=== PATIENT | male | born 1985 | race Caucasian/White ===

== ENCOUNTER 2017-06-08 00:01 | Outpatient (POV) ==
[2016-02-10 12:45] VITALS: BMI 38.2
== END 2017-06-14 00:02 | disposition home or self-care (01) ==
LOC: OUTPT 00:01
PROVIDERS: ATTEND Otolaryngology
DX: H91.90 Unspecified hearing loss, unspecified ear (principal)
CPT/HCPCS: 92557; 92567

== ENCOUNTER → 2017-06-21 | Outpatient (POV) ==
[2016-02-10 12:45] VITALS: BMI 38.2
== END ==
LOC: OUTPT 00:01
PROVIDERS: ATTEND Otolaryngology
DX: H90.3 Sensorineural hearing loss, bilateral (principal)
CPT/HCPCS: 92557

== ENCOUNTER 2017-08-23 11:26 | Emergency (ER) ==
[2017-08-23 11:35] VITALS: BP 144/78; TEMP 100.8; BMI 39.3
[2017-08-23] MEDS ORDERED: LIDOCAINE HCL 1% SDV SUBCUT STA (11:35)
[2017-08-23] MEDS ORDERED: ROCEPHIN IM STA (11:35)
--- NOTE | 2017-08-23 11:37 | ED.PDOC ---
General ED Provider: Dr. JEYSON DOUGLASS Chief Complaint: Sore Throat Stated Complaint: sore throat Time Seen by Physician: 11:30 Mode of Arrival: Walk-In Information Source: Patient Exam Limitations: No limitations Primary Care Provider: TAWANA WESTFALL Nursing and Triage Documentation Reviewed and Agree: Yes EENT Complaint Exam - Throat Complaint/Exam Symptoms Are: Still present Timimg: Constant Initial Severity: Moderate Current Severity: Moderate Aggravating: Reports: Eating Alleviating: Reports: None Associated Signs and Symptoms: Reports: Dysphagia, Cough. Denies: Fever, Drooling, Foreign body sensation, Chills, Wheezing, Hoarseness, Sinus discomfort , Nasal congestion, Difficulty breathing, Lethargy, Irritability, Decreased activity, Vomiting, Diarrhea, Decreased hearing, Ear drainage Uvula Midline: Yes Mallory-tonsillar Fluctuence: No Scarlatinaform Rash Present: No Stridor Present: No Sinus Tenderness Present: No Tonsillar Hypertrophy Present: No Tonsillar Exudate Present: No Mallory-tonsillar Swelling Present: No Adenopathy Present: No Splenomegaly Present: No Review of Systems - Review Of Systems Constitutional: Reports: No symptoms Eyes: Reports: No symptoms Ears, Nose, Mouth, Throat: Reports: Throat pain Respiratory: Reports: No symptoms Cardiac: Reports: No symptoms GI: Reports: No symptoms : Reports: No symptoms Musculoskeletal: Reports: No symptoms Skin: Reports: No symptoms Neurological: Reports: No symptoms Endocrine: Reports: No symptoms Hematologic/Lymphatic: Reports: No symptoms All Other Systems: Reviewed and Negative Past Medical History - Past Medical History Previously Healthy: Yes Endocrine: Reports: None Cardiovascular: Reports: None Respiratory: Reports: None Hematological: Reports: None Gastrointestinal: Reports: None Genitourinary: Reports: None Neuro/Psych: Reports: None Musculoskeletal: Reports: None Cancer: Reports: None - Surgical History General Surgical History: Reports: Cholecystectomy - Family History Family History: Reports: Unknown - Social History Smoking Status: Current every day smoker, Heavy tobacco smoker Hx Substance Use: No Alcohol Screening: None Physical Exam - Physical Exam Appearance: Well-appearing, No pain distress, Well-nourished Eyes: LAURA, EOMI, Conjunctiva clear ENT: Erythema, Exudate Respiratory: Airway patent, Breath sounds clear, Breath sounds equal, Respirations nonlabored Cardiovascular: RRR, Pulses normal, No rub, No murmur GI/: Soft, Nontender, No masses, Bowel sounds normal, No Organomegaly Musculoskeletal: Normal strength, ROM intact, No edema, No calf tenderness Skin: Warm, Dry, Normal color Neurological: Sensation intact, Motor intact, Reflexes intact, Cranial nerves intact, Alert, Oriented Psychiatric: Affect appropriate, Mood appropriate Critical Care Note - Critical Care Note Total Time (mins): 0 Course - Course Orders, Labs, Meds: Orders Category Date Time Status Ceftriaxone Sodium [Rocephin] MEDS 08/23/17 11:35 Stat 1 gm IM ONCE STA Lidocaine HCl/Pf [Lidocaine HCl 1% Sdv] MEDS 08/23/17 11:35 Stat 5 ml SUBCUT ONCE STA Medications Generic Name Dose Route Start Last Admin Trade Name Freq PRN Reason Stop Dose Admin Ceftriaxone Sodium 1 gm 08/23/17 11:35 Rocephin IM 08/23/17 11:36 ONCE STA Lidocaine HCl 5 ml 08/23/17 11:35 Lidocaine Hcl 1% Sdv SUBCUT 08/23/17 11:36 ONCE STA Vital Signs: Temp Pulse Resp BP Pulse Ox 08/23/17 11:27 100.8 F H 124 H 20 144/78 H 95 Departure - Departure Time of Disposition: 11:37 Disposition: HOME SELF-CARE Discharge Problem: Sore throat symptom Pharyngitis Qualifiers: Pharyngitis/tonsillitis etiology: unspecified etiology Qualified Code(s): J02.9 - Acute pharyngitis, unspecified Instructions: Pharyngitis (ED), Sore Throat in Children (ED) Condition: Good Pt referred to PMD for follow-up: Yes Additional Instructions: Please call your Family Physician as soon as possible to schedule a follow-up appointment. Prescriptions: Amoxicillin 500 mg PO Q8HR #30 tablet Allergies/Adverse Reactions: Allergies No Known Allergies Allergy (Verified 08/23/17 11:34) Home Medications: Ambulatory Orders Amoxicillin 500 mg PO Q8HR #30 tablet 08/23/17
[2017-08-23] MEDS ORDERED: DECADRON 4 MG/ML SDV IM STA (11:41)
[2017-08-23 12:15] LABS: MONO INTERNAL QC INTERNAL QC VALID
== END 2017-08-23 12:34 | disposition home or self-care (01) ==
LOC: ED 11:26
DX: J02.9 Acute pharyngitis, unspecified (principal); F17.210 Nicotine dependence, cigarettes, uncomplicated
CPT/HCPCS: 36415; 86308; 96372; 99282

== ENCOUNTER 2017-08-29 19:22 | Emergency (ER) ==
[2017-08-29 19:29] VITALS: BP 152/82; TEMP 100.8; BMI 39.2
[2017-08-29] MEDS ORDERED: DECADRON 4 MG/ML SDV IM STA (20:04)
[2017-08-29] MEDS ORDERED: AUGMENTIN 875-125 MG TAB PO STA (20:04)
--- NOTE | 2017-08-29 20:06 | ED.PDOC ---
General ED Provider: Dr. TEDDY ROBBINS Chief Complaint: Sore Throat Stated Complaint: Sore throat for 2-3 days, hurts to swallow. has fever. Time Seen by Physician: 20:04 Mode of Arrival: Walk-In Information Source: Patient Primary Care Provider: TAWANA WESTFALL Nursing and Triage Documentation Reviewed and Agree: Yes EENT Complaint Exam - Throat Complaint/Exam Symptoms Are: Still present Timimg: Constant Initial Severity: Mild Current Severity: Mild Aggravating: Reports: Eating Alleviating: Reports: None Associated Signs and Symptoms: Reports: Fever, Dysphagia. Denies: Drooling, Foreign body sensation, Chills, Cough, Wheezing, Hoarseness, Sinus discomfort, Nasal congestion, Difficulty breathing, Lethargy, Irritability, Decreased activity, Vomiting, Diarrhea, Decreased hearing, Ear drainage Related History: Reports: Similar Episode Uvula Midline: Yes Mallory-tonsillar Fluctuence: No Scarlatinaform Rash Present: No Stridor Present: No Sinus Tenderness Present: No Tonsillar Hypertrophy Present: No Tonsillar Exudate Present: No Mallory-tonsillar Swelling Present: No Adenopathy Present: Yes Differential Diagnoses: Pharyngitis, URI Review of Systems - Review Of Systems Constitutional: Reports: Fever, Malaise Eyes: Reports: No symptoms Ears, Nose, Mouth, Throat: Reports: Throat pain Respiratory: Reports: No symptoms Cardiac: Reports: No symptoms GI: Reports: No symptoms : Reports: No symptoms Musculoskeletal: Reports: No symptoms Skin: Reports: No symptoms Neurological: Reports: No symptoms Endocrine: Reports: No symptoms Hematologic/Lymphatic: Reports: No symptoms All Other Systems: Reviewed and Negative Past Medical History - Past Medical History Previously Healthy: Yes Endocrine: Reports: None Cardiovascular: Reports: None Respiratory: Reports: None Hematological: Reports: None Gastrointestinal: Reports: None Genitourinary: Reports: None Neuro/Psych: Reports: None Musculoskeletal: Reports: None Cancer: Reports: None - Surgical History General Surgical History: Reports: Cholecystectomy - Family History Family History: Reports: Unknown - Social History Smoking Status: Current every day smoker, Heavy tobacco smoker Smoking Cessation Counseling Time: > 10 min Hx Substance Use: No Alcohol Screening: None Physical Exam - Physical Exam Appearance: Well-appearing, No pain distress, Well-nourished, Obese Eyes: LAURA, EOMI, Conjunctiva clear ENT: Ears normal, Nose normal, Erythema Respiratory: Airway patent, Breath sounds clear, Breath sounds equal, Respirations nonlabored Cardiovascular: RRR, Pulses normal, No rub, No murmur GI/: Soft, Nontender, No masses, Bowel sounds normal, No Organomegaly Musculoskeletal: Normal strength, ROM intact, No edema, No calf tenderness Skin: Warm, Dry, Normal color Neurological: Sensation intact, Motor intact, Reflexes intact, Cranial nerves intact, Alert, Oriented Psychiatric: Affect appropriate, Mood appropriate Critical Care Note - Critical Care Note Total Time (mins): 15 Course - Course Orders, Labs, Meds: Orders Category Date Time Status MOLECULAR GROUP A STREP Stat LAB 08/29/17 19:31 Results RAPID STREP SCREEN [STREP SCREEN] Stat LAB 08/29/17 19:31 Results Vital Signs: Temp Pulse Resp BP Pulse Ox 08/29/17 19:23 100.8 F H 112 H 20 152/82 H 96 Departure - Departure Time of Disposition: 20:07 Disposition: HOME SELF-CARE Discharge Problem: Pharyngitis Qualifiers: Pharyngitis/tonsillitis etiology: other specified organisms Qualified Code(s): J02.8 - Acute pharyngitis due to other specified organisms Instructions: Pharyngitis (ED) Condition: Good Pt referred to PMD for follow-up: Yes Additional Instructions: Increase Hydration Tylenol prn Prescriptions: Amoxicillin/Potassium Clav [Augmentin 875-125 mg Tab] 1 tab PO Q8H #21 tablet Prednisone 10 mg PO BIDWM #14 tablet Allergies/Adverse Reactions: Allergies No Known Allergies Allergy (Verified 08/29/17 19:29) Home Medications: Ambulatory Orders Amoxicillin/Potassium Clav [Augmentin 875-125 mg Tab] 1 tab PO Q8H #21 tablet Prednisone 10 mg PO BIDWM #14 tablet 08/29/17 Disposition Discussed With: Patient
[2017-08-29 20:54] LABS: FLU INTERNAL QC INTERNAL QC VALID; RAPID FLU A NEGATIVE (NEGATIVE); RAPID FLU B NEGATIVE (NEGATIVE)
== END 2017-08-29 20:55 | disposition home or self-care (01) ==
LOC: ED 19:22
DX: J02.9 Acute pharyngitis, unspecified (principal); F17.210 Nicotine dependence, cigarettes, uncomplicated
CPT/HCPCS: 87651; 87804; 87880; 96372; 99283

== ENCOUNTER 2017-10-26 21:04 | Emergency (ER) ==
[2017-10-26 21:07] VITALS: BMI 38.9
[2017-10-26] MEDS ORDERED: TYLENOL PO STA (21:26)
--- NOTE | 2017-10-26 21:29 | ED.PDOC ---
General ED Provider: Dr. WALTER HAAS Chief Complaint: Chest Pain Stated Complaint: Patient is a 32 year old male who complains of dull chest pain , Dizziness and shortness of breath with conjestion and fever T Max 102.6 Time Seen by Physician: 21:27 Mode of Arrival: Walk-In Information Source: Patient Exam Limitations: No limitations Primary Care Provider: TAWANA WESTFALL Nursing and Triage Documentation Reviewed and Agree: Yes Reviewed sepsis parameters & appropriate labs ordered?: Yes System Inflammatory Response Syndrome: Temp 101F or Greater, Pulse >90 BPM Sepsis Protocol: For patient's 13 years and over: Temp is 96.8 and below OR 101 and greater Pulse >90 BPM Resp >20/minute Acutely Altered Mental Status Are patient's symptoms suggestive of a new infection, such as: -Pneumonia -Skin, Soft Tissue -Endocarditis -UTI -Bone, Joint Infection -Implantable Device -Acute Abdominal Infection -Wound Infection -Meningitis -Blood Stream Catheter Infection -Unknown Miscellaneous Complaint Exam - Febrile Illness/Adult Complaint/Exam Onset/Duration: 1 day Symptoms Are: Still present Timing: Constant Highest Temperature Recorded: 102 Initial Severity: Severe Current Severity: Severe Associated Signs and Symptoms: Reports: Short of air, Cough (mild), Chills. Denies: Headache, Fluid intake, Sore throat, Nausea, Vomiting, Diaphoresis, Dysuria, Arthralgia, Stiff neck, Myalgia, Rash, Altered mental status Pseudomonas Risk Factors: Reports: None Serious Bacterial Infection Risk Factors: Reports: None Current Antibiotic Use: No Last Time and Dose of Motrin (ibuprofen): 0800 Related Surgical History: None Specific Findings: Absent: Meningeal signs, Diaphoresis, Joint swelling, Erythema, Cellulitis, Lymphadenopathy, Petechiae, CVA tenderness Differential Diagnoses: Bacteremia, Fever of Unknown Origin, Sepsis, Viremia Quality Indicator For Non-Traumatic Chest Pain/Syncope: EKG Performed Review of Systems - Review Of Systems Constitutional: Reports: No symptoms Eyes: Reports: No symptoms Ears, Nose, Mouth, Throat: Reports: No symptoms Respiratory: Reports: Cough, Short of air Cardiac: Reports: Chest pain GI: Reports: No symptoms : Reports: No symptoms Musculoskeletal: Reports: No symptoms Skin: Reports: No symptoms Neurological: Reports: No symptoms Endocrine: Reports: No symptoms Hematologic/Lymphatic: Reports: No symptoms All Other Systems: Reviewed and Negative Past Medical History - Past Medical History Previously Healthy: Yes Endocrine: Reports: None Cardiovascular: Reports: None Respiratory: Reports: None Hematological: Reports: None Gastrointestinal: Reports: None Genitourinary: Reports: None Neuro/Psych: Reports: None Musculoskeletal: Reports: None Cancer: Reports: None - Surgical History General Surgical History: Reports: Cholecystectomy - Family History Family History: Reports: Unknown - Social History Smoking Status: Current every day smoker, Heavy tobacco smoker Hx Substance Use: No Alcohol Screening: Occasionally - Immunizations Tetanus Shot up to Date: Yes Physical Exam - Physical Exam Appearance: Ill-appearing, Obese Ill-appearing: Moderate Pain Distress: Mild Eyes: LAURA, EOMI, Conjunctiva clear Neck: Supple Respiratory: Airway patent, Breath sounds clear, Breath sounds equal, Respirations nonlabored Cardiovascular: Tachycardia GI/: Soft, Nontender, No masses Musculoskeletal: Normal strength, ROM intact, No edema, No calf tenderness Skin: Warm, Dry, Normal color Neurological: Sensation intact, Motor intact, Alert, Oriented Psychiatric: Anxious Interpretation - Radiology Interpretation Radiology Interpretation By: ED Physician Radiology Results: Negative - EKG Interpretation Time of EKG #1: 21:18 Rate: Tachy Rhythm: Sinus Ectopy: None [place]: NL ST Segment: Normal Interpretation: Sinus Tachycardia Critical Care Note - Critical Care Note Total Time (mins): 15 Course - Course Hematology/Chemistry: 10/26/17 21:40 10/26/17 21:40 Orders, Labs, Meds: Lab Review 10/26/17 10/26/17 10/26/17 21:40 21:40 21:40 WBC 6.17 RBC 5.38 Hgb 15.9 Hct 45.8 MCV 85.1 MCH 29.6 MCHC 34.7 RDW Coeff of [place] 12.7 Plt Count 204 Immature Gran % (Auto) 0.2 Neut % (Auto) 67.9 Lymph % (Auto) 18.3 [place] % (Auto) 11.0 H Eos % (Auto) 2.3 Baso % (Auto) 0.3 Immature Gran # (Auto) 0.0 Neut # 4.2 Lymph # 1.1 [place] # 0.7 Eos # 0.1 Baso # 0.0 Sodium 138 Potassium 4.6 Chloride 104 Carbon Dioxide 26 Anion Gap 12.6 BUN 14 Creatinine 1.20 H Estimated GFR (MDRD) 70.00 BUN/Creatinine Ratio 11.66 Glucose 100 Lactic Acid 13.8 Calcium 9.3 Total Bilirubin 0.3 AST 36 ALT 58 Alkaline Phosphatase 95 Total Creatine Kinase 187 CK-MB (CK-2) 0.4 CK-MB (CK-2) % 0.00101 Troponin I < 0.0100 Total Protein 7.7 Albumin 3.5 Globulin 4.2 Albumin/Globulin Ratio 0.83 Procalcitonin Influenza A (Rapid) Influenza B (Rapid) 10/26/17 10/26/17 21:40 21:50 WBC RBC Hgb Hct MCV MCH MCHC RDW Coeff of [place] Plt Count Immature Gran % (Auto) Neut % (Auto) Lymph % (Auto) [place] % (Auto) Eos % (Auto) Baso % (Auto) Immature Gran # (Auto) Neut # Lymph # [place] # Eos # Baso # Sodium Potassium Chloride Carbon Dioxide Anion Gap BUN Creatinine Estimated GFR (MDRD) BUN/Creatinine Ratio Glucose Lactic Acid Calcium Total Bilirubin AST ALT Alkaline Phosphatase Total Creatine Kinase CK-MB (CK-2) CK-MB (CK-2) % Troponin I Total Protein Albumin Globulin Albumin/Globulin Ratio Procalcitonin 0.11 Influenza A (Rapid) Negative by naat Influenza B (Rapid) Positive by naat H Orders Category Date Time Status EKG-(ED ONLY) Stat CARDIO 10/26/17 21:24 Completed BLOOD CULTURE (ED ONLY) Stat LAB 10/26/17 21:40 Received CBC W/ AUTO DIFF Stat LAB 10/26/17 21:40 Completed COMPREHENSIVE METABOLIC PANEL Stat LAB 10/26/17 21:40 Completed CREATINE KINASE Stat LAB 10/26/17 21:40 Completed FLU A/B MOLECULAR Stat LAB 10/26/17 21:50 Completed LACTIC ACID Stat LAB 10/26/17 21:40 Completed PROCALCITONIN Stat LAB 10/26/17 21:40 Completed RAPID STREP SCREEN [MOLECULAR GROUP A STREP] Stat LAB 10/26/17 21:50 Completed TROPONIN I Stat LAB 10/26/17 21:40 Completed Acetaminophen [Tylenol] MEDS 10/26/17 21:26 Discontinued 1,000 mg PO ONCE STA Amoxicillin [Amoxil] MEDS 10/26/17 22:18 Discontinued 500 mg PO ONCE STA Oseltamivir Phosphate [Tamiflu] MEDS 10/26/17 22:32 Discontinued 75 mg PO ONCE STA CHEST, 1V AP ONLY Stat RADS 10/26/17 21:24 Taken Medications Discontinued Medications Generic Name Dose Route Start Last Admin Trade Name Syed PRN Reason Stop Dose Admin Acetaminophen 1,000 mg 10/26/17 21:26 10/26/17 21:38 Tylenol PO 10/26/17 21:27 1,000 mg ONCE STA Administration Amoxicillin 500 mg 10/26/17 22:18 10/26/17 22:28 Amoxil PO 10/26/17 22:19 500 mg ONCE STA Administration Oseltamivir Phosphate 75 mg 10/26/17 22:32 10/26/17 22:35 Tamiflu PO 10/26/17 22:33 75 mg ONCE STA Administration Vital Signs: Temp Pulse Resp BP Pulse Ox 10/26/17 22:45 99.7 F H 101 H 20 140/78 97 10/26/17 21:05 102.6 F H 119 H 18 148/79 H 97 Departure - Departure Time of Disposition: 22:20 Disposition: HOME SELF-CARE Discharge Problem: Strep pharyngitis, Influenza B Instructions: Pharyngitis (ED), Influenza (ED) Condition: Stable Pt referred to PMD for follow-up: Yes IPMP verified?: No Additional Instructions: Push fluids Take medications as prescribed Follow up with PCP in 3 days Prescriptions: Oseltamivir Phosphate [Tamiflu] 75 mg PO Q12HR #9 capsule Amoxicillin [Amoxil] 500 mg PO TID #30 capsule Allergies/Adverse Reactions: Allergies No Known Allergies Allergy (Verified 08/29/17 19:29) Home Medications: Ambulatory Orders Amoxicillin [Amoxil] 500 mg PO TID #30 capsule 10/26/17 Oseltamivir Phosphate [Tamiflu] 75 mg PO Q12HR #9 capsule 10/26/17 Disposition Discussed With: Patient
[2017-10-26] MEDS ORDERED: AMOXIL PO STA (22:18)
[2017-10-26] MEDS ORDERED: TAMIFLU PO STA ×2 (22:26→22:32)
[2017-10-26 22:45] VITALS: BP 140/78; TEMP 99.7
--- NOTE | 2017-10-27 06:40 | DI ---
Exam: Single x-ray of the chest. Comparison: None available. Reason for exam: Chest pain. FINDINGS: Increased interstitial lung markings are seen with a basilar predominance. No pneumothora x. The cardiac silhouette is prominent in size. The imaged osseous structures appear grossly unrema rkable without acute fracture. Patchy airspace opacities are seen bilaterally. Impression: 1. Cardiomegaly with increased interstitial lung markings likely edema. 2. Patchy airspace opacities in the lung bases likely atelectasis or pneumonia.
== END 2017-10-26 22:45 | disposition home or self-care (01) ==
LOC: ED 21:04
DX: J02.0 Streptococcal pharyngitis (principal); J10.1 Influenza due to other identified influenza virus with other respiratory manifestations; F17.210 Nicotine dependence, cigarettes, uncomplicated
CPT/HCPCS: 36415; 80053; 82550; 82553; 83605; 84145; 84484; 85025; 87040; 87502; 87651; 93005; 93010; 99283

== ENCOUNTER 2018-10-12 15:33 | Emergency (ER) ==
[2018-10-12 15:38] VITALS: BP 163/101; TEMP 99; BMI 41.1
== END 2018-10-12 17:20 | disposition left against medical advice (07) ==
LOC: ED 15:33
DX: R05 Cough (principal); J02.9 Acute pharyngitis, unspecified
CPT/HCPCS: 99282

== ENCOUNTER 2018-12-14 20:11 | Emergency (ER) ==
[2018-12-14 20:13] VITALS: TEMP 98.6; BMI 39.5
[2018-12-14] MEDS ORDERED: TORADOL IM STA (20:25)
--- NOTE | 2018-12-14 20:30 | ED.PDOC ---
General ED Provider: Dr. WALTER HAAS Chief Complaint: Scrotal Pain Stated Complaint: Patient states that starting 4 hours ago while driving started having severe right testicular pain. Denies any Trauma. Time Seen by Physician: 20:26 Mode of Arrival: Walk-In Information Source: Patient Exam Limitations: No limitations Primary Care Provider: TIAN PATEL Nursing and Triage Documentation Reviewed and Agree: Yes Does patient meet sepsis criteria?: No System Inflammatory Response Syndrome: Not Applicable Sepsis Protocol: For patient's 13 years and over: Temp is 96.8 and below OR 101 and greater Pulse >90 BPM Resp >20/minute Acutely Altered Mental Status Are patient's symptoms suggestive of a new infection, such as: -Pneumonia -Skin, Soft Tissue -Endocarditis -UTI -Bone, Joint Infection -Implantable Device -Acute Abdominal Infection -Wound Infection -Meningitis -Blood Stream Catheter Infection -Unknown Complaint Exam - Complaint/Exam Patient Complains of: Reports: Scrotal pain (right ) Onset/Duration: 4 hours Symptoms Are: Still present Timing: Constant Initial Severity: Severe Current Severity: Severe Location of Pain: Reports: Right, Testicle Character: Reports: Dull, Tearing Aggravating: Reports: Palpation (and sitting ) Alleviating: Reports: None Associated Signs and Symptoms: Reports: Scrotal pain Testicular Torsion Risk Factors: Reports: None Surgical Obstruction Risk Factors: Reports: None Related Surgical History: Reports: None Abdominal Findings: Present: None Genitalia Exam: Present: Testes tender (on the right ) Differential Diagnoses: Epididymitis, Incarcerated Hernia, UTI, Testicular Torsion Review of Systems - Review Of Systems Constitutional: Reports: No symptoms Eyes: Reports: No symptoms Ears, Nose, Mouth, Throat: Reports: No symptoms Respiratory: Reports: No symptoms Cardiac: Reports: No symptoms GI: Reports: No symptoms : Reports: Pain (Right testicular ) Musculoskeletal: Reports: No symptoms Skin: Reports: No symptoms Neurological: Reports: No symptoms Endocrine: Reports: No symptoms Hematologic/Lymphatic: Reports: No symptoms All Other Systems: Reviewed and Negative Past Medical History - Past Medical History Previously Healthy: Yes Endocrine: Reports: None Cardiovascular: Reports: None Respiratory: Reports: None Hematological: Reports: None Gastrointestinal: Reports: None Genitourinary: Reports: None Neuro/Psych: Reports: None Musculoskeletal: Reports: None Cancer: Reports: None - Surgical History General Surgical History: Reports: Cholecystectomy - Family History Family History: Reports: Unknown - Social History Smoking Status: Current every day smoker, Heavy tobacco smoker Hx Substance Use: No Alcohol Screening: Occasionally - Immunizations Tetanus Shot up to Date: No Physical Exam - Physical Exam Appearance: Ill-appearing, Obese Ill-appearing: Mild Pain Distress: Severe Neck: Supple Respiratory: Airway patent, Breath sounds clear, Breath sounds equal, Respirations nonlabored Cardiovascular: RRR, Pulses normal, No rub, No murmur GI/: Soft, No masses, Bowel sounds normal, No Organomegaly, Tender (right testicle ) Musculoskeletal: Normal strength, ROM intact, No edema, No calf tenderness Neurological: Alert, Oriented Psychiatric: Anxious Re-Evaluation - Re-Evaluation Time of Re-Evaluation: 21:00 Status: Improved Vital Signs Stable: Yes (134/107) Pain Level: somewhat better Physician Notification - Case Discussed Physician Notified: Dr. Medina Time of Notification: 20:38 (accepted to see in the ER ) Critical Care Note - Critical Care Note Total Time (mins): 0 Course - Course Orders, Labs, Meds: Lab Review 12/14/18 20:40 Urine Color Yellow Urine Clarity Clear Urine pH 5.5 Ur Specific [place] >=1.030 Urine Protein Negative Urine Glucose (UA) Negative Urine Ketones Negative Urine Blood Negative Urine Nitrite Negative Urine Bilirubin Negative Urine Urobilinogen 0.2 Ur Leukocyte Esterase Negative Orders Category Date Time Status ED IV/MEDIPORT/POWERPORT .ONCE EMERGENCY 12/14/18 20:38 Active URINALYSIS C & S IF INDICATED Stat LAB 12/14/18 20:40 Completed 0.9 % Sodium Chloride [Saline Flush] MEDS 12/14/18 20:38 Discontinued 1 syr IVF PRN PRN Hydromorphone HCl [Dilaudid 1 mg/ml Syringe] MEDS 12/14/18 20:40 Discontinued 1 mg .ROUTE .STK-MED ONE Hydromorphone HCl [Dilaudid 1 mg/ml Syringe] MEDS 12/14/18 20:38 Discontinued 1 mg IVP ONCE STA Ketorolac Tromethamine [Toradol] MEDS 12/14/18 20:25 Discontinued 60 mg IM ONCE STA Ondansetron HCl/Pf [Zofran 4 mg/2 ml] MEDS 12/14/18 20:40 Discontinued 4 mg .ROUTE .STK-MED ONE Ondansetron HCl/Pf [Zofran 4 mg/2 ml] MEDS 12/14/18 20:38 Discontinued 4 mg IVP ONCE STA Sodium Chloride 0.9% [Sodium Chloride] 1,000 ml MEDS 12/14/18 20:40 Discontinued IV 75 mls/hr Medications Discontinued Medications Generic Name Dose Route Start Last Admin Trade Name Freq PRN Reason Stop Dose Admin Hydromorphone HCl 1 mg 12/14/18 20:38 12/14/18 20:42 Dilaudid 1 Mg/Ml Syringe IVP 12/14/18 20:39 1 mg ONCE STA Administration Sodium Chloride 1,000 mls @ 75 mls/hr 12/14/18 20:40 12/14/18 20:44 Sodium Chloride IV 12/15/18 09:59 75 mls/hr .[id number] STA Administration Ketorolac Tromethamine 60 mg 12/14/18 20:25 12/14/18 20:30 Toradol IM 12/14/18 20:26 60 mg ONCE STA Administration Ondansetron HCl 4 mg 12/14/18 20:38 12/14/18 20:44 Zofran 4 Mg/2 Ml IVP 12/14/18 20:39 4 mg ONCE STA Administration Sodium Chloride 1 syr 12/14/18 20:38 12/14/18 20:44 Saline Flush IVF 1 syr PRN PRN Administration To flush IV Vital Signs: Temp Pulse Resp BP Pulse Ox 12/14/18 20:35 116 H 134/107 H 96 12/14/18 20:12 98.6 F 111 H 20 180/83 H 98 Departure - Departure Time of Disposition: 21:02 Disposition: TSF SHORT-TRM HOSP Discharge Problem: Testicular pain, right Condition: Fair Pt referred to PMD for follow-up: Yes IPMP verified?: No Allergies/Adverse Reactions: Allergies No Known Allergies Allergy (Verified 12/14/18 20:13) Home Medications: Ambulatory Orders 1 [No Reported Medications] 10/12/18 Disposition Discussed With: Patient
[2018-12-14 20:36] VITALS: BP 134/107
[2018-12-14] MEDS ORDERED: DILAUDID 1 MG/ML SYRINGE IVP STA (20:38)
[2018-12-14] MEDS ORDERED: ZOFRAN 4 MG/2 ML IVP STA (20:38)
[2018-12-14] MEDS ORDERED: DILAUDID 1 MG/ML SYRINGE ONE (20:40)
[2018-12-14] MEDS ORDERED: SODIUM CHLORIDE 1,000 ML IV STA (20:40)
[2018-12-14] MEDS ORDERED: ZOFRAN 4 MG/2 ML ONE (20:40)
== END 2018-12-14 21:00 | disposition short-term general hospital (02) ==
LOC: ED 20:11
DX: N50.811 Right testicular pain (principal); F17.210 Nicotine dependence, cigarettes, uncomplicated
CPT/HCPCS: 81001; 96361; 96372; 96374; 96375; 99285

== ENCOUNTER 2018-12-14 21:03 | Outpatient (CLI) ==
[2018-12-14 20:13] VITALS: BMI 39.5
== END 2018-12-14 21:04 | disposition home or self-care (01) ==
LOC: AMBL 21:03
PROVIDERS: ATTEND Internal Medicine Geriatric Medicine
DX: N50.819 Testicular pain, unspecified (principal)

== ENCOUNTER 2019-01-12 15:23 | Outpatient (CLI) | END 2019-01-12 15:24 | disposition home or self-care (01) | LOC: RHC-LAB 15:23 | PROVIDERS: ATTEND Nurse Practitioner Family | DX: L02.01 Cutaneous abscess of face (principal) | CPT/HCPCS: 87070; 87186 ==